=== PATIENT | male | born 2000 | race Caucasian/White ===

== ENCOUNTER 2022-03-20 06:44 | Day surgery (SDC) | payer MEDICAID ==
[~2022-03-20] VITALS: Ht 172.7 cm; Wt 68.0 kg
[2022-03-20] MEDS ORDERED: SIMETHICONE 40 MG/0.6 ML ML ONE (07:28)
[2022-03-20] MEDS ORDERED: BENZOCAINE 20% 0.5mL UD SPRAY MM ONE (07:29)
[2022-03-20] MEDS: MIDAZOLAM HCL 5 MG/5 ML VIAL ONE ×3 (09:31→09:38)
[2022-03-20] MEDS: MEPERIDINE 100 MG INJ. 100 MG/ML VIAL ONE ×2 (09:31→09:41)
[2022-03-20] MEDS ORDERED: DIPHENHYDRAMINE INJ 50 MG/ML VIAL ONE (09:39)
[2022-03-20 13:40] VITALS: BP_SYST 121
== END 2022-03-20 11:15 | disposition home or self-care (01) ==
LOC: SDS 06:44 → SMU 06:45 → SDS 11:15
PROVIDERS: ATTEND Internal Medicine
DX: R19.4 Change in bowel habit (principal); K64.8 Other hemorrhoids; K52.9 Noninfective gastroenteritis and colitis, unspecified; K29.50 Unspecified chronic gastritis without bleeding; K29.80 Duodenitis without bleeding; Z20.822 Contact with and (suspected) exposure to COVID-19; Z79.899 Other long term (current) drug therapy
CPT/HCPCS: 36415 ×2; 43239; 45380; 87426; 88305; 88312; 88313; 99152; 99153; G0378; J1200; J2175; J2250; U0003